=== PATIENT | male | born 1950 | race African-American/Black ===

== ENCOUNTER 2020-11-04 10:04 | Inpatient (IN) ==
[2020-11-04 10:30] LABS: Basophils % 0.1 % (0.0-0.8); Hematocrit 19.5 VOL% (42.0-52.0); Immature Granulocytes % 1.9 %; Immature Granulocytes Absolute 0.41 #; Lymphocytes # 3.1 10*3/uL (1.4-4.0); Lymphocytes % 14.5 % (21.2-54.2); Mean Corpuscular HGB Conc 31.8 GM/DL (32-36); Mean Corpuscular Volume 92.4 FL (87-102); Mean Platelet Volume 11.2 FL (9.6-12.0); Monocytes % 8.4 % (1.7-12.7); Neutrophils % 75.1 % (38.7-73.9); Platelet Count 187 T/CUMM (130-400); Red Blood Count 2.11 MC/CUMM (3.8-5.5); Red Cell Distribution Width 14.3 % (9.3-17.3); White Blood Count 21.6 T/CUMM (4-12)
[2020-11-04 10:36] LABS: Hemoglobin 6.2 GM/DL (14.0-18.0)
[2020-11-04] MEDS ORDERED: PANTOPRAZOLE 40 MG VIAL IV STA (10:37)
[2020-11-04] MEDS ORDERED: SODIUM CHLORIDE 0.9% 1,000 ML IV PRN (10:38)
[2020-11-04 10:49] LABS: Alanine Aminotransferase 11 U/L (16-61); Albumin 2.6 G/DL (3.4-5.0); Alkaline Phosphatase 67 U/L (45-117); Aspartate Amino Transferase 8 U/L (0-37); Bilirubin,Total < 0.39 MG/DL (0.2-1.0); Blood Urea Nitrogen 30 MG/DL (7-18); Calcium 7.9 MG/DL (8.5-10.1); Carbon Dioxide 20 MMOL/L (21-32); Estimated Glom Filtration Rate 46 ML/MIN; Glucose 220 MG/DL (74-106); Osmolality,Calculated 291.4 MOS/KG (273-304); Potassium 4.2 MMOL/L (3.5-5.1); Sodium 140 MMOL/L (136-145)
[2020-11-04 10:52] LABS: PT Patient Result 11.4 SECS (9.8-11.9)
[2020-11-04 11:00] LABS: Lymphocytes 17 % (20-55); Platelet Estimate Adequate; Segmented Neutrophils 75 % (50-85); Total Cells Counted 100
[2020-11-04 11:01] LABS: Hypochromasia 2+; Microcytosis 1+
[2020-11-04] MEDS ORDERED: SODIUM CHLORIDE 0.9% 1,000 ML IV STA (11:16)
[2020-11-04] MEDS ORDERED: DEXTROSE 50% 25 GM/50 ML VIAL IV PRN (12:16)
[2020-11-04] MEDS ORDERED: GLUCAGON 1 MG VIAL IM PRN (12:16)
[2020-11-04] MEDS: ONDANSETRON 4 MG/2 ML VIAL IV PRN (12:38)
[2020-11-04 14:31] LABS: Hematocrit 18.2 VOL% (42.0-52.0)
[2020-11-04 14:33] LABS: Hemoglobin 6.1 GM/DL (14.0-18.0)
[2020-11-04] MEDS: SODIUM CHLORIDE 0.9% 1,000 ML IV SCH ×2 (15:34→20:36)
[2020-11-04] MEDS: ACETAMINOPHEN 325 MG TABLET PO PRN (21:31)
[2020-11-04] MEDS: cefTRIAXone 1,000 MG in SODIUM CHLORIDE 0.9% 100 ML IV SCH (21:31)
[2020-11-04] MEDS: metroNIDAZOLE INJ 500 MG/100 ML PREMIX IV SCH (22:11)
[2020-11-04 23:22] LABS: Hematocrit 20.2 VOL% (42.0-52.0); Hemoglobin 6.7 GM/DL (14.0-18.0)
[2020-11-05 01:19] LABS: Hematocrit 20.2 VOL% (42.0-52.0); Hemoglobin 6.7 GM/DL (14.0-18.0)
[2020-11-05] MEDS ORDERED: SODIUM CHLORIDE 0.9% 1,000 ML IV PRN ×3 (01:28→09:11)
[2020-11-05] MEDS: SODIUM CHLORIDE 0.9% 1,000 ML IV SCH ×3 (04:28→20:42)
[2020-11-05] MEDS: metroNIDAZOLE INJ 500 MG/100 ML PREMIX IV SCH ×3 (04:30→21:21)
[2020-11-05 05:53] LABS: Albumin 2.4 G/DL (3.4-5.0); Bilirubin,Total 0.6 MG/DL (0.2-1.0); Calcium 7.6 MG/DL (8.5-10.1); Osmolality,Calculated 282.5 MOS/KG (273-304); Total Protein 4.7 G/DL (6.4-8.2)
[2020-11-05 06:24] LABS: Basophils # 0.1 10*3/uL (0.0-0.2); Basophils % 0.4 % (0.0-0.8); Eosinophils % 0.1 % (0.00-10.9); Hematocrit 19.1 VOL% (42.0-52.0); Hemoglobin 6.5 GM/DL (14.0-18.0); Immature Granulocytes % 1.1 %; Lymphocytes # 3.8 10*3/uL (1.4-4.0); Lymphocytes % 20.3 % (21.2-54.2); Mean Corpuscular Volume 87.2 FL (87-102); Mean Platelet Volume 10.4 FL (9.6-12.0); Monocytes % 11.4 % (1.7-12.7); NRBC # 0.03 10*3/uL; Neutrophils % 66.7 % (38.7-73.9); Platelet Count 178 T/CUMM (130-400); Red Blood Count 2.19 MC/CUMM (3.8-5.5); Red Cell Distribution Width 14.4 % (9.3-17.3); White Blood Count 18.5 T/CUMM (4-12)
[2020-11-05] MEDS ORDERED: LACTATED RINGERS 1,000 ML IV SCH (07:00)
[2020-11-05] MEDS ORDERED: propofoL 200 MG/20 ML VIAL IV ONE (07:48)
[2020-11-05] MEDS ORDERED: LIDOCAINE 2% 5 ML VIAL ONE (07:48)
[2020-11-05] MEDS ORDERED: ETOMIDATE 20 MG/10 ML VIAL IV ONE (08:01)
[2020-11-05] MEDS: BISACODYL 5 MG TABLET PO SCH ×2 (09:00→16:07)
[2020-11-05] MEDS: PANTOPRAZOLE 40 MG TABLET PO SCH (09:01)
[2020-11-05 10:32] LABS: Hematocrit 25.3 VOL% (42.0-52.0)
[2020-11-05 10:48] LABS: Hemoglobin 8.4 GM/DL (14.0-18.0)
[2020-11-05 13:01] LABS: Hemoglobin 7.5 GM/DL (14.0-18.0)
[2020-11-05] MEDS: ACETAMINOPHEN 325 MG TABLET PO PRN (13:50)
[2020-11-05] MEDS ORDERED: POLYETHYLENE GLYCOL POWDER 255 GM BOTTLE PO ONE (18:00)
[2020-11-05 19:11] LABS: Hematocrit 21.5 VOL% (42.0-52.0); Hemoglobin 7.3 GM/DL (14.0-18.0)
[2020-11-05] MEDS: cefTRIAXone 1,000 MG in SODIUM CHLORIDE 0.9% 100 ML IV SCH (20:42)
[2020-11-05] MEDS ORDERED: MAGNESIUM CITRATE 300 ML BOTTLE PO ONE (21:00)
[2020-11-06] MEDS: BISACODYL 5 MG TABLET PO SCH
[2020-11-06] MEDS: metroNIDAZOLE INJ 500 MG/100 ML PREMIX IV SCH ×3 (05:04→21:09)
[2020-11-06] MEDS: SODIUM CHLORIDE 0.9% 1,000 ML IV SCH ×2 (06:38→14:27)
[2020-11-06 07:34] LABS: Basophils % 0.2 % (0.0-0.8); Eosinophils # 0.1 10*3/uL (0.0-0.87); Eosinophils % 0.4 % (0.00-10.9); Hematocrit 22.4 VOL% (42.0-52.0); Hemoglobin 7.4 GM/DL (14.0-18.0); Immature Granulocytes % 0.8 %; Immature Granulocytes Absolute 0.11 #; Lymphocytes # 3.1 10*3/uL (1.4-4.0); Lymphocytes % 23.2 % (21.2-54.2); Mean Corpuscular Volume 89.6 FL (87-102); Mean Platelet Volume 9.9 FL (9.6-12.0); Monocytes % 9.6 % (1.7-12.7); NRBC # 0.02 10*3/uL; Neutrophils % 65.8 % (38.7-73.9); Platelet Count 205 T/CUMM (130-400); Red Cell Distribution Width 14.2 % (9.3-17.3); White Blood Count 13.4 T/CUMM (4-12)
[2020-11-06 07:59] LABS: Calcium 7.9 MG/DL (8.5-10.1); Osmolality,Calculated 272.7 MOS/KG (273-304); Potassium 3.8 MMOL/L (3.5-5.1)
[2020-11-06] MEDS ORDERED: propofoL 200 MG/20 ML VIAL IV ONE ×2 (08:52→09:24)
[2020-11-06] MEDS ORDERED: LIDOCAINE 2% 5 ML VIAL ONE (08:52)
[2020-11-06] MEDS ORDERED: ePHEDrine 50 MG/ML VIAL ONE (09:10)
[2020-11-06] MEDS ORDERED: SODIUM CHLORIDE 0.9% 1,000 ML IV PRN (09:23)
[2020-11-06 10:17] LABS: Hematocrit 22.7 VOL% (42.0-52.0); Hemoglobin 7.5 GM/DL (14.0-18.0)
[2020-11-06] MEDS: PANTOPRAZOLE 40 MG TABLET PO SCH (10:36)
[2020-11-06] MEDS: ONDANSETRON 4 MG/2 ML VIAL IV PRN (13:10)
[2020-11-06 19:53] LABS: Hemoglobin 10.1 GM/DL (14.0-18.0)
[2020-11-06] MEDS: cefTRIAXone 1,000 MG in SODIUM CHLORIDE 0.9% 100 ML IV SCH (20:38)
[2020-11-06 22:21] LABS: Hematocrit 27.9 VOL% (42.0-52.0); Hemoglobin 9.2 GM/DL (14.0-18.0)
[2020-11-07] MEDS: metroNIDAZOLE INJ 500 MG/100 ML PREMIX IV SCH (04:41)
[2020-11-07 05:37] LABS: Calcium 7.7 MG/DL (8.5-10.1); Osmolality,Calculated 276.4 MOS/KG (273-304); Potassium 3.5 MMOL/L (3.5-5.1)
[2020-11-07 07:58] VITALS: BP 140/75
[2020-11-07 08:13] LABS: Hematocrit 30.9 VOL% (42.0-52.0); Hemoglobin 10.4 GM/DL (14.0-18.0)
[2020-11-07] MEDS: PANTOPRAZOLE 40 MG TABLET PO SCH (08:20)
== END 2020-11-07 10:45 | disposition home or self-care (01) | DRG 378 ==
LOC: EDBD → EDUNIT# → N.ED 10:04 → N.EDINP 12:16 → SUATTDRO 12:16 → N.EDINP 13:28 → N.5E 13:49
PROVIDERS: ADMIT Internal Medicine; ATTEND Hospitalist